=== PATIENT | male | born 1980 | race Two or more races ===

== ENCOUNTER 2017-04-29 02:14 | Emergency (ER) | payer MEDICAID, OTHER ==
[~2017-04-29] VITALS: Ht 172.7 cm; Wt 130.0 kg
[2017-04-29] MEDS ORDERED: MORPHINE SULFATE 4 MG/ML CPJ (NOT FOR IM USE) IV STA (06:27)
[2017-04-29] MEDS ORDERED: FAMOTIDINE 20MG/2ML VIAL IV STA (06:27)
[2017-04-29] MEDS ORDERED: ONDANSETRON HCL 4MG/2ML VIAL IV STA (06:27)
[2017-04-29] MEDS ORDERED: MAGNESIUM/ALUMINUM HYDROXIDE/SIMETHICONE 30ML UDC PO STA (06:27)
[2017-04-29] MEDS ORDERED: SODIUM CHLORIDE 0.9% 1,000 ML IV ONE (06:27)
[2017-04-29 06:51] LABS: BASOPHILS % 0.6 % (0.0-2.0); EOSINOPHILS % 2.1 % (0.0-5.0); HEMATOCRIT. 40.6 % (42.0-52.0); HEMOGLOBIN. 14.1 g/dL (14.0-18.0); LYMPHOCYTES % 26.8 % (20.0-50.0); MEAN CORPUSCULAR HEMOGLOBIN 29.3 pg (28.0-32.0); MEAN CORPUSCULAR VOLUME 84.6 fL (80.0-94.0); MEAN PLATELET VOLUME 6.8 fl (7.4-10.4); MONOCYTES % 8.1 % (2.0-8.0); NEUTROPHILS % 62.4 % (40.0-76.0); PLATELET 218 x1000/uL (130-400); RED CELL DISTRIBUTION WIDTH 13.5 % (11.6-14.6)
[2017-04-29 07:06] LABS: CARBON DIOXIDE 33 mEq/L (21-32); CHLORIDE 102 mEq/L (98-107); ETHANOL BLOOD < 10 mg/dL
[2017-04-29 07:15] LABS: CLARITY URINE CLOUDY (CLEAR); COLOR URINE YELLOW (YELLOW); GLUCOSE URINE NEGATIVE (NEGATIVE); KETONES URINE NEGATIVE (NEGATIVE); LEUKOCYTE ESTERASE URINE NEGATIVE (NEGATIVE); NITRITE URINE NEGATIVE (NEGATIVE); OCCULT BLOOD URINE NEGATIVE (NEGATIVE); PH URINE 7.5 (4.5-8.0); PROTEIN URINE NEGATIVE (NEGATIVE); SPECIFIC GRAVITY URINE 1.025 (1.005-1.030)
[2017-04-29 07:31] LABS: *AMPHETAMINES SCREEN URINE NEGATIVE (NEGATIVE); *BARBITURATES SCREEN URINE NEGATIVE (NEGATIVE); *BENZODIAZEPINES SCREEN URINE NEGATIVE (NEGATIVE); *COCAINE SCREEN URINE NEGATIVE (NEGATIVE); CANNABINOID URINE SCREEN NEGATIVE (NEGATIVE); METHADONE URINE SCREEN NEGATIVE (NEGATIVE); OPIATES URINE SCREEN NEGATIVE (NEGATIVE); PHENCYCLIDINE URINE SCREEN NEGATIVE (NEGATIVE)
[2017-04-29 12:36] VITALS: BP 126/77
== END 2017-04-29 12:37 | disposition home or self-care (01) ==
LOC: ER 02:14
DX: K85.90 Acute pancreatitis without necrosis or infection, unspecified (principal); R10.13 Epigastric pain; F17.210 Nicotine dependence, cigarettes, uncomplicated; J84.10 Pulmonary fibrosis, unspecified
CPT/HCPCS: 36415; 71010; 74176; 80053; 80305; 81001; 83690; 85025; 93005; 99285; G0482; J7030; Z7610; J2270; J2405; J3490

== ENCOUNTER 2025-03-08 21:07 | Emergency (ER) | payer OTHER ==
[~2025-03-08] VITALS: Ht 175.3 cm; Wt 86.0 kg
[2025-03-08] MEDS: LEVETIRACETAM 1000MG PREMIX 100 ML IV ONE (21:39)
[2025-03-08] MEDS: DEXAMETHASONE 10 MG/ML VIAL IV ONE (21:40)
[2025-03-08] MEDS ORDERED: MANNITOL 12.5G (25%) VIAL 50ML IV ONE (21:45)
[2025-03-08 21:47] VITALS: PULSE 97; RESP 18; O2SAT 99
[2025-03-08] MEDS: PROPOFOL 10MG/ML 100ML 100 ML IV ONE (21:49)
[2025-03-08] MEDS ORDERED: FENTANYL 2500MCG/250ML PMX 250 ML IV SCH (23:15)
[2025-03-08 23:25] LABS: HEMATOCRIT. 27.0 % (42.0-52.0); HEMOGLOBIN. 9.4 g/dL (14.0-18.0); MEAN PLATELET VOLUME 5.9 fl (7.4-10.4); PLATELET 150 x1000/uL (130-400); RED BLOOD CELL COUNT 3.06 mill/uL (4.7-6.1); RED CELL DISTRIBUTION WIDTH 21.0 % (11.6-14.6)
[2025-03-08 23:26] VITALS: PULSE 109; RESP 21; O2SAT 98
[2025-03-08] MEDS: FENTANYL 2500MCG/250ML PMX 250 ML IV ONE (23:27)
[2025-03-08 23:30] LABS: CREATININE 0.4 mg/dL (0.6-1.3)
[2025-03-08 23:31] LABS: ETHANOL BLOOD < 10 mg/dL (<10); TROPONIN I HIGH SENSITIVITY < 4 ng/L (3.0-53); UREA NITROGEN BLOOD 19 mg/dL (9-23)
[2025-03-08 23:32] LABS: ASPARTATE AMINOTRANSFERASE 18 IU/L (<34)
[2025-03-08 23:33] LABS: BILIRUBIN DIRECT 0.2 mg/dL (<=3.0); BILIRUBIN TOTAL 0.9 mg/dL (0.1-1.0); PROTEIN TOTAL 6.2 g/dL (6.0-8.3)
[2025-03-09 01:24] VITALS: O2SAT 100
[2025-03-09] MEDS: PROPOFOL 10MG/ML 100ML 100 ML IV SCH (01:24)
[2025-03-09 02:00] VITALS: BP 116/89; PULSE 94; RESP 18; TEMP 37.1; O2SAT 100
[2025-03-09 05:25] LABS: BAND% 8.0 % (1.0-6.0); LYMPHOCYTES % MANUAL 6.0 % (20.0-50.0); METAMYELOCYTES % 2.0 % (0-0); MONOCYTES % MANUAL 4.0 % (2.0-8.0); MYELOCYTES % 1.0 % (0-0); NEUTROPHILS % MANUAL 79.0 % (45.0-75.0); PLATELET ESTIMATE NORMAL
== END 2025-03-09 02:42 | disposition short-term general hospital (02) ==
LOC: ER 21:07 → CMPBEDREQ 03-10 08:31
DX: R56.9 Unspecified convulsions (principal); C43.9 Malignant melanoma of skin, unspecified; C79.31 Secondary malignant neoplasm of brain; E11.9 Type 2 diabetes mellitus without complications; G93.9 Disorder of brain, unspecified; Z20.822 Contact with and (suspected) exposure to COVID-19
CPT/HCPCS: 80076; 80048; 80320; 82962; 85025; 84484; 36415; 71045; 70450; 31500; 94664; 93005; 94070; 98960; 96367; 96365; 96375; 99291; 87426; J3010; J1953; J1100; J2704 ×2; Z7610 ×5; A4606; J2150; G0480